=== PATIENT | female | born 1960 | race Caucasian/White ===

== ENCOUNTER → 2024-12-14 20:30 | Outpatient (REF) | payer BC, SELFPAY ==
--- OUTSIDE RECORDS SUMMARY | 2024-12-14 21:43 | XMS_ITS ---
Author Organization [facility] Address [address] [place] [address] Care Team Providers Care Wire Stitcher Operator Name Role Phone SINTIA HARMON, TANISHA Primary Care Provider Iveth Griffin Unavailable [phone] TANIA BURRELL Unavailable [phone] Allergies Allergen (clinical drug ingredient) Drug/Non Drug Allergy documented on EMR Reaction Allergy Type Onset Date Status oxycodone Oxycodone HCl Unknown Drug Allergy Act renee Substance with sulfonamide structure and antibacterial mechanism of action (substance) Sulfa Antibiotics Skin Rash Drug Allergy Active Results Component Value Reference Range Notes Urinalysis Reviewed date:07/17/2024 11:37:10 AM Interpretation: Performing Lab: Notes/Report: NITRITE POS PH 8.0 PROTEIN TR S.G 1.000 WBC POS GLUCOSE NEG KETONES NEG UROBILINOGEN NEG BILIRUBIN NEG BLOOD NEG Urinalysis, Complete-[id number] Reviewed date:07/19/2024 02:02:36 PM Interpretation: Performing Lab:Kanu Taylor, [address], Phone - [phone], Director - Tre Notes/Report: Specific Sims 1.005 1.005-1.030 pH 7.0 5.0-7.5 Urine-Color Yellow Yellow Appearance Clear Clear WBC Esterase Negative Negative Protein Negative Negative/Trace Glucose Negative Negative Ketones Negative Negative Occult Blood Negative Negative Bilirubin Negative Negative Urobilinogen,Semi-Qn 1.0 0.2-1.0 mg/dL Nitrite, Urine Positive Negative Microscopic Examination See below: Micr oscopic was indicated and was performed. WBC None seen 0 - 5 /hpf RBC None seen 0 - 2 /hpf Epithelial Cells (non renal) 0-10 0 - 10 /hpf Casts None seen None seen /lpf Bacteria None seen None seen/Few Urine Culture, Routine-[id number] Reviewed date:07/20/2024 08:57:40 AM Interpretation: Performing Lab:[facility], [address], [place], Phone - [phone], Director - Tre Notes/Report: Urine Culture, Routine Final report Result 1 No growth PDF Report Reviewed date:07/19/2024 02:10:24 PM Interpretation: Performing Lab:[facility], [address], [place], Phone - [phone], Director - Tre Notes/Report: REASON FOR VISIT UTI URGENCY AND FULLNESS Medications Medication SIG (Take, Route, Frequency, Duration) Notes Start Date End Date Status Adrenal Complex Acti ve Estradiol 0.5 MG 1 tablet Orally Once a day for 90 days 06/21/2024 Active Macrobid 100 MG 1 capsule with food Orally every 12 hrs for 5 days 07/17/2024 Active Prometrium 100 MG 1 capsule at bedtime Orally Once a day for 90 days 06/21/2024 Active Estradiol 0.1 MG/GM 1 GRAM Vaginal Two t imes a Week for 90 days 06/21/2024 Active Vitamin D3 1000 IU ORAL daily for [place]3 [facility] [place]2012 Active Vitamin B Complex Orally Ac tive Prometrium 100 MG 1 capsule at bedtime Orally Once a day for 90 days 06/16/2023 Active Estradiol Vaginal Cream 0.01% 1 Gram to the affected area Vaginal/Vulva Twice a week for 90 Days 06/16/2023 Active Estradiol 0.5 MG 1 tablet Orally Once a day for 90 days 06/16/2023 Active Estradiol 0.5 mg TAKE 1 TABLET DAILY Active Prometrium 100 MG 1 capsule at bedtime Orally Once a day for 90 days 06/15/2022 Active Estradiol Vaginal Cream 0.01% 1 Gram Vaginally Twice a Week for 90 Days 10/26/2022 Active Estradiol 0.1 MG/GM _insert 1 GRAM VAGIN ALLY TWICE A WEEK Active Estradiol 0.5 MG 1 tablet Orally Once a day for 90 days 06/15/2022 Active Progesterone 100 mg TAKE 1 CAPSULE DAILY AT BEDTIME Active Sertraline HCl 100 MG 1 tablet Orally On ce a day for 30 day(s) Active Magnesium Active Iodine 2 % as directed Externally Active Atenolol - as directed Active Social History Tobacco Use: Social History Observation Description Date Details (start date - stop date) Never Smoker NA - NA Tobacco Use/Smoking Question Answer Notes Are you a nonsmoker Alcohol Screen (Audit-C) Question Answer Notes Did you have a drink containing alcohol in the p ast year? No Points 0 Interpretation Negative Vital Signs Temperature 97.8 degrees Fahrenheit 07/17/20 24 Blood pressure systolic 122 mm Hg 07/17/20 24 Blood pressure diastolic 82 mm Hg 024 Height 66 in 07/17/2024 Weight 152 lbs 07/17/2024 BMI 24.53 kg/m2 07/17/2024 Encounters Encounter Location Date Provider Diagnosis [facility] [address] [place] [address] 07/17/2024 TANIA BURRELL Feeling of incomplet e bladder emptying R39.14 ; Dysuria R30.0 and Frequency of micturition R35.0 Assessments Encounter Date Diagnosis (ICD Code) Assessment Notes Treatment Notes Treatment Clinical Notes Section Notes 07/17/2024 Feeling of incomplete bladder emptying (ICD-10 - R39.14) 07/17/2024 Dysuria (ICD-10 - R30.0) plenty of fluids orally , AZO as needed , Tylenol 3-4 times a day as needed , Call if not better 07/17/2024 Frequency of micturition (ICD-10 - R35.0) Plan Of Treatment Medication Medication Name Sig Start Date Stop Date Notes Macrobid 100 MG 1 capsule with food Orally every 12 hrs for 5 days 07/17/2024 Treatment Notes Assessment Notes Dysuria plenty of fluids ora lly , AZO as needed , Tylenol 3-4 times a day as needed , Call if not better Next Appt Details Follow Up: prn, Reason: Provider Name:Iveth fink, 06/25/2025 10:20:00 AM, [address], [address], [place], [address], Progress Notes * ZAINABABEL JAMESB:1960 (64 yo F)Acc No.[id number]:07/17/2024 PROGRESS NOTES Patient:?CHERISE FOOTEA Provider:?TANIA BURRELL MD :1960???Age:64 Y???Sex:Female D ate:07/17/2024 Address:[address] [place] [address] Pcp:TANISHA PATRICIO MD Subjective: * Chief Complaints: * ???UTI URGENCY AND FULLNESS * HPI: ???DITCH CLEANER (Problems):?Tania is a [address] Orellana's here today for an urgent visit. ?64 year old female presents with c/o Urinary Tract Infection (symptoms of):?Describes problems as:?frequency, urgency pelvic pressure ?Location of problem:?suprapubic ?Date of onset:?less than one week ?Onset and progression of problem:?has been constant, has not changed since onset, has happened in the past ?Associated signs and symptoms:?None ? Denies new sexual partners, denies vaginal discharges. * ROS:?General/Constitutional:?Denies?Chills.?Denies?Fever.?Women Only:?Patient denies?new sexual partners.?Denies?Painful intercourse.?Denies?Vaginal discharge/itching.?Genitourinary:?Admits?Abdominal pain/swelling.?Denies?Blood in urine.?Admits?Difficulty urinating.?Admits?Frequent urination.?Denies?Pain in lower back.?Denies?Painful urination.? * Medical History:? * Stone Lathe Operator History:?/ Para?3/3.?Sexual activity?currently sexually active.?Last Pap Smear:?06/16/23 NIL, NEG HPV, 06/11/20 NIL, NEG HPV, 01/17/17 NIL, neg HR HPV.?Mammogram:?05/04/23 < 50% density, 05/03/22 < 50% density, 04/01/21 < 50% density, 12/11/19 < 50% density, , 12/07/18 < 50% density, 12/01/17 3D < 50% density, 11/15/16 3D< 50% density, 11/12/15 3D < 50% density, 11/11/14.?LMP and menses?N/A SINCE IUD REMOVED.?Colonoscopy?2012.? * OB History:?Total pregnancies?3.?Total living children?3.?(s)?3.? * Surgical History:? x 3 Taylor Teeth Extraction * Hospitalization/Major Diagno stic Procedure:?3 Deliveries ER for Anxiety 02/2016 * Family History:?Mother: dece ased, Breast Cancer age 31.?Father: , CHF, asbestiosis.?Paternal uncle: alive, 1. esophageal cancer age 732. esophageal ca age 74.?Paternal aunt: Breast Cancer @ age 34.?Maternal aunt: Breast Cancer @ Age 38 ()her daughter had breast ca x 3, age 28, 36 and 48 ().? Brother's daughter has ovarian ca, dx'ed age 31. She tested neg for 28 genetic mutations. 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 Pt tested BRCA1/2 neg 12/28/13, accession #[id number]. Results in [facility] EMR - update panel ordered 12/12/19 Brother Daughter + BRCA and Triple Negative - Double Mastectomy at 43. * Social History:?Tobacco Use:?Tobacco Use/Smoking?Are you a?nonsmoker ???Sexual History:?Sexual History?Had sex in the past 12 months (vaginal, oral, or anal)?: Yes.?Details of Sexual History?Are you sexually active??Yes ???Drugs/Alcohol:?Drugs?Have you used drugs other than those for medical reasons in the past 12 months??No ?Alcohol Screen (Audit-C)?Did you have a drink containing alcohol in the past year??No ?Points?0 ?Interpretation?Negative ???Miscellaneous:?Children: yes, 3. ?Domestic violence: no. ?Exercise: no. ?Home smoke detector use: yes. ?Living with: spouse. ?Marital status: . ?Natural support system: yes. ?Occupation: Homemaker. ?Sexual abuse: no. ?Sexually active: yes, monogamous relationship. ?Verbal abuse: no. * Medications:?TakingAtenolol - Powder as directed Iodine 2 % Tincture as directed Externally Sertraline HCl 100 MG Tablet 1 tablet Orally Once a day Magnesium Progesterone 100 mg Capsule TAKE 1 CAPSULE DAILY AT BEDTIME Estradiol 0.5 mg Tablet TAKE 1 TABLET DAILY Estradiol 0.1 MG/GM Cream _insert 1 GRAM VAGINALLY TWICE A WEEK Estradiol 0.5 MG Tablet 1 tablet Orally Once a day Prometrium 100 MG Capsule 1 capsule at bedtime Orally Once a day Estradiol Vaginal Cream 0.01% Cream 1 Gram Vaginally Twice a Week Estradiol 0.5 MG Tablet 1 tablet Orally Once a day Prometrium 100 MG Capsule 1 capsule at bedtime Orally Once a day Estradiol Vaginal Cream 0.01% Cream 1 Gram to the affected area Vaginal/Vulva Twice a week Vitamin D3 1000 IU 30 ORAL daily , Notes to Pharmacist: Phu-MJVitamin B Complex Tablet Orally Adrenal Complex Estradiol 0.5 MG Tablet 1 tablet Orally Once a day Prometrium 100 MG Capsule 1 capsule at bedtime Orally Once a day Estradiol 0.1 MG/GM Cream 1 GRAM Vaginal Two times a Week Medication List reviewed and reconciled with the patientTaking Atenolol - Powder as directed Taking Iodine 2 % Tincture as directed Externally Taking Sertraline HCl 100 MG Tablet 1 tablet Orally Once a day Taking Magnesium Taking Progesterone 100 mg Capsule TAKE 1 CAPSULE DAILY AT BEDTIME Taking Estradiol 0.5 mg Tablet TAKE 1 TABLET DAILY Taking Estradiol 0.1 MG/GM Cream _insert 1 GRAM VAGINALLY TWICE A WEEK Taking Estradiol 0.5 MG Tablet 1 tablet Orally Once a day Taking Prometrium 100 MG Capsule 1 capsule at bedtime Orally Once a day Taking Estradiol Vaginal Cream 0.01% Cream 1 Gram Vaginally Twice a Week Taking Estradiol 0.5 MG Tablet 1 tablet Orally Once a day Taking Prometrium 100 MG Capsule 1 capsule at bedtime Orally Once a day Taking Estradiol Vaginal Cream 0.01% Cream 1 Gram to the affected area Vaginal/Vulva Twice a week Taking Vitamin D3 1000 IU 30 ORAL daily , Notes to Pharmacist: PhuCrispinMJAndresfrankfort Vitamin B Complex Tablet Orally Taking Adrenal Complex Taking Estradiol 0.5 MG Tablet 1 tablet Orally Once a day Taking Prometrium 100 MG Capsule 1 capsule at bedtime Orally Once a day Taking Estradiol 0.1 MG/GM Cream 1 GRAM Vaginal Two times a Week Medication List reviewed and reconciled with the patient * Allergies:?Oxycodone HCl: Al lergySulfa Antibiotics: Skin Rash - Allergyno[Allergies Verified] Objective: * Vitals:?Ht: 66 in, Wt:152lbs , BMI:24.53Index, BP:122/82mm Hg, Temp:97.8F. * Examination: ???General Examination: ?GENERAL APPEARANCE:? pleasant, well nourished, in no acute distress, vp data present in room.?ABDOMEN:?soft, nontender, nondistended, bowel sounds present, no masses palpable, no hepatosplenomegaly.?BACK:?normal, no costovertebral angle tenderness.?Genitourinary - Female: ?EXTERNAL GENITALS:? normal.?URETHRAL MEATUS:? normal.?VAGINA:? healthy pink mucosa without any lesions or abnormal discharge.?CERVIX:? normal, no cervical movement tenderness.?UTERUS:? non tender.?OVARIES:? normal size, nontender.? Assessment: * Assessment: 1.?Feeling of incomplete bhavya dder emptying - R39.14???2.?Dysuria - R30.0 (Primary)???3.?Frequency of micturition - R35.0??? Plan: * Treatment: ? Value Reference Range ?Specific Sims 1.005 1.005- 1.030 - * ?pH 7.0 5.0-7.5 - * ?Urine-Color Yellow Yellow - * ?Appearance Clear Clear - * ?WBC Esterase Negative Negative - * ?Protein Negative Negative/Trace - * ?Glucose Negative Negative - * ?Ketones Negative Negative - * ?Occult Blood Negative Negative - * ?Bilirubin Negative Negative - * ?Urobilinogen,Semi-Qn 1.0 0. 2-1.0 - mg/dL * ?Nitrite, Urine Positive A Negative - * ?Microscopic Examination See below: - * ?WBC None seen 0 - 5 - /hpf * ?RBC None seen 0 - 2 - /hpf * ?Epithelial Cells (non renal) 0-10 0 - 10 - /hpf * ?Casts None seen None seen - /lp f * ?Bacteria None seen None seen/Few - * This lab was reviewed by CHERISE BURRELL on 07/19/2024 at 14:02 PM EDT ?LAB: Urine Culture, Routine-[id number] Notes: plenty of fluids orally , AZO as needed , Tylenol 3-4 times a day as needed , Call if not better??2.?Feeling of incomplete bladder emptying?LAB: Urinalysis (Collection Date & Time - 07/17/2024)* ? Value Reference Range ?NITRITE POS * ?PH 8.0 * ?PROTEIN TR * ?S.G 1.000 * ?WBC POS * ?GLUCOSE NEG * ?KETONES NEG * ?UROBILINOGEN NEG * ?BILIRUBIN NEG * ?BLOOD NEG 3.?Frequency of micturition? Start Macrobid Capsule, 100 MG, 1 capsule with food, Orally, every 12 hrs, 5 days, 10 Capsule, Refills 0.?? * Procedure Codes:? * Follow Up:?prn * Images: Billing Information: * Visit Code:? 35091 Office Visit, Est Pt., Level 3. * Procedure Codes:? * Sign off status: Completed true * Provider:?TANIA BURRELL MD Date:?2023 Generated for Meg grant/Natalia/eTransmitting on:?12/14/2024 09:43 PM EST History and Physical Notes * HPI (History of Present Illness) Category Sub-Category Detail Notes Category Not es DITCH CLEANER (Problems) Urinary Tract Infection (symptoms of): Describes problems as:: frequency, urgency pelvic pressure Denies new sexual partners, denies vaginal discharges. Location of problem:: suprapubic Date of onset:: less than one week Onset and progression of pro blem:: has been constant, has not changed since onset, has happened in the past Associated signs and symptoms:: None Examination Category Sub-Category Detail Notes Category Not es Genitourinary - Female EXTERNAL GENITALS: normal VAGINA: healthy pink mucosa without any lesions or abnormal discharge CERVIX: normal, no cervical movement tenderness UTERUS: non tender OVARIES: normal size, nontend er URETHRAL MEATUS: normal General Examination GENERAL APPEARANCE: pleasant , well nourished, in no acute distress, vp data present in room ABDOMEN: soft, nontender, non distended, bowel sounds present, no masses palpable, no hepatosplenomegaly BACK: normal, no costovert ebral angle tenderness
--- OUTSIDE RECORDS SUMMARY | 2024-12-14 21:43 | XMS_ITS | Encounter Summary ---
Author Organization [employer] Address [address] [address] Care Team Providers Care Book Store Associate Name Role Phone Ira Lee MD Primary Care Provider [phone] Reason for Visit * Reason Onset Date Comments Appointment Request 04/03/2024 Encounter Details Date Type Department Care Team (Late st Contact Info) Description 04/03/2024 Telephone [facility] [address] [place] [address] Ira Lee MD [address] [place] [address] Appointment Request Social History Tobacco Use Types Packs/Day Years Used Date Smoking Tobacco: Never Smokeless Tobacco: Never Alcohol Use Standard Drinks/Week Comments Never 0 (1 standard drink = 0.6 oz pur e alcohol) Depression Answer Date Recorded Patient Health Questionnaire-9 Score 1 10/26/2022 Depression Answer Date Recorded Patient Health Questionnaire-2 Score 0 10/26/2022 Comments Unknown Sex and Gender Information Value Date Recorded Sex Assigned at Female 08/16/2022 10:40 AM EDT Legal Sex Female 10:40 AM EDT Gender Identity Female 08/16/2022 10:40 AM EDT Sexual Orientation Straight 10/27/2022 12 :56 PM EST documented as of this encounter Miscellaneous Notes * Telephone Encounter - Stanton Vaughan - 04/03/2024 9:46 AM EDT Tc from patient calling to schedule a appt to get stiches removed from the thumb for 04/09 documented in this encounter Plan of Treatment Upcoming Encounters Date Type Department Care Team (Late st Contact Info) Description 02/11/2025 10:00 AM EDT Office Visit [facility] [address] [place] [address] Ira Lee MD [address] [place] [address] documented as of this encounter Visit Diagnoses Not on filedocumented in this encounter Additional Health Concerns Assessment Noted Time PHQ-9 Depression Total Score: 1 10/26/19 23 2:05 PM EST documented as of this encounter Care Teams Book Store Associate Relationship Specialty Start Date End Date Ira Lee MD [address] [place] [address] PCP - General Internal Medicine 10/17/18 documented as of this encounter
--- OUTSIDE RECORDS SUMMARY | 2024-12-14 21:43 | XMS_ITS | Clinical Summary ---
Author Organization [facility] Address [address] [place] [address] Care Team Providers Care Quality Specialist Name Role Phone Jass Mariano DO Primary Care Provider [phone] Family History Relation Name Status Comments Brother 1 Alive Brother 2 Alive Brother 3 Alive Father Alive Mother Social History Tobacco Use Types Packs/Day Years Used Date Smoking Tobacco: Never Alcohol Use Standard Drinks/Week Comments No 0 (1 standard drink = 0.6 oz pur e alcohol) Comments Unknown Sex and Gender Information Value Date Recorded Sex Assigned at Not on file Legal Sex Female 7:14 AM EST Gender Identity Not on file Sexual Orientation Not on file Obstetrics History Plan of Treatment Health Maintenance Due Date Last Done Comments Breast Cancer Screening 1960 Cervical Cancer Screening: P ap Smear 1983 Pneumococcal Vaccine: 50+ Ye ars (1 of 1 - PCV) 01/05/2012 Zoster Vaccines (1 of 2) 01/05/2012 Colorectal Cancer Screening: Colonoscopy 09/19/2022 Depression Screening 09/19/2022 HIV Screening 09/19/2022 Hepatitis C Screening 09/19/2022 Social Influencers of Health Screening 09/19/2022 COVID-19 Vaccine (1 - 2023-2 5 season) 2024 Influenza Vaccine (#1) 2024 DTaP,Tdap,and Td Vaccines (2 - Td or Tdap) 03/31/2034 03/31/2024 RSV Immunization Patients 60 + Years Old (1 - 1-dose 75+ series) 2037 HIB Vaccines Aged Out No longer eligi ble based on patient's age to complete this topic HPV Vaccines Aged Out No longer eligi ble based on patient's age to complete this topic Hepatitis A Vaccines Aged Out No long er eligible based on patient's age to complete this topic Hepatitis B Vaccines Aged Out No long er eligible based on patient's age to complete this topic IPV Vaccines Aged Out No longer eligi ble based on patient's age to complete this topic MMR Vaccines Aged Out No longer eligi ble based on patient's age to complete this topic Meningococcal ACWY Vaccine Aged Out N o longer eligible based on patient's age to complete this topic Meningococcal B Vacine Aged Out No lo nger eligible based on patient's age to complete this topic Pneumococcal Vaccine: Pediat rics (0 to 5 Years) and At-Risk Patients (6 to 64 Years) Aged Out No longer eligi ble based on patient's age to complete this topic RSV Immunization Patients Un raquel 20 months Aged Out No longer eligible b ased on patient's age to complete this topic Varicella Vaccines Aged Out No longer eligible based on patient's age to complete this topic Care Teams Quality Specialist Relationship Specialty Start Date End Date Jass Mariano DO [address] [place] [phone] PCP - General Internal Medicine 05/25/18
--- OUTSIDE RECORDS SUMMARY | 2024-12-14 21:43 | XMS_ITS | Encounter Summary ---
Author Organization [employer] [facility] Address [address] [place] [address] Care Team Providers Care Veterinary Epidemiologist Name Role Phone Ira Lee MD Primary Care Provider [phone] Encounter Details Date Type Department Care Team (Late Contact Info) Description 04/02/2024 Orders Only [facility] [address] [place] [address] ProviderYadi MD Social History Tobacco Use Types Packs/Day Years [...] PM EST documented as of this encounter Plan of Treatment Upcoming Encounters Date Type Department Care Team (Late Contact Info) Description 02/11/2025 10:00 AM EDT Office Visit [facility] [address] [place] [address] Ira Lee MD [address] [place] [address] documented as of this encounter Procedures Procedure Name Priority Date/Time Associated Diagnosis Comments XR FINGER THUMB 2+ VIEWS RIGHT Routine 03/31/2024 10:05 AM EDT documented in this encounter Results * XR finger - thumb right min 2V (03/31/2024 10:05 AM EDT) Anatomical Region Laterality Modality Upper Extremities, Fingers Right [employer] us Historical Provider MD SAMUEL XR PROCEDURES Final R esult documented in this encounter Visit Diagnoses Not on filedocumented in this encounter Additional Health Concerns Assessment Noted Time PHQ-9 Depression Total Score: 1 10/26/19 23 2:05 PM EST documented as of this encounter Care Teams Veterinary Epidemiologist Relationship Specialty Start Date End Date Ira Lee MD [address] [place] [phone] PCP - General Internal Medicine 10/17/18 documented as of this encounter
--- OUTSIDE RECORDS SUMMARY | 2024-12-14 21:43 | XMS_ITS | Clinical Summary ---
Author Organization [facility] Address [address] [place] [address] Care Team Providers Care Home Service Technician Name Role Phone GarcíaParadisedereje GALINDO Primary Care Provider [phone] Allergies Active Allergy Reactions Criticality Noted Date Comments Sulfa Antibiotics 06/07/2018 Medications Medication Sig Dispensed Refills Start Date End Date Status predniSONE (DELTASONE) tablet 20 mg 0 04/10/2018 Active escitalopram (LEXAPRO) tablet 10 mg 0 05/08/2018 Active Active Problems Problem Noted Date Diagnosed Date Incomplete tear of right rotator cuff 06/20/2018 Chronic right shoulder pain 06/07/2018 Social History Tobacco Use Types Packs/Day Years Used Date Smoking Tobacco: Never Smokeless Tobacco: Never Alcohol Use Standard Drinks/Week Comments No 0 (1 standard drink = 0.6 oz pur e alcohol) Sex and Gender Information Value Date Recorded Sex Assigned at Not on file Gender Identity Not on file Sexual Orientation Not on file Plan of Treatment Health Maintenance Due Date Last Done Comments Hepatitis C Screening 1960 COVID-19 Vaccine (#1) 1962 Depression Screening 1974 Preventative Health Evaluation 01/05/1980 DTap / Tdap / Td (1 - Tdap) 1981 Cervical Cancer Screening (P ap Smear) 1983 Colon Cancer Screening (Colonoscopy) 2007 Breast Cancer Screening (Mammogram) 01/05/2012 Shingrix-Zoster Vaccine (1 of 2) 01/05/2012 Influenza Vaccine (#1) 2024 RSV Adult > 60+ Yrs or Pregn ant (1 - 1-dose 75+ series) 2037 Hepatitis B Vaccines Aged Out No long er eligible based on patient's age to complete this topic Pneumococcal Vaccine Aged Out No long er eligible based on patient's age to complete this topic RSV Ped < 20 months Aged Out No longe r eligible based on patient's age to complete this topic Care Teams Home Service Technician Relationship Specialty Start Date End Date Jass Mariano DO [address] [place] [phone] PCP - General Internal Medicine 05/25/18
--- OUTSIDE RECORDS SUMMARY | 2024-12-14 21:43 | XMS_ITS | Encounter Summary ---
Author Organization [employer] Address [address] [place] [address] Care Team Providers Care Packing Line Worker Name Role Phone Ira Lee MD Primary Care Provider [phone] Encounter Details Date Type Department Care Team (Late Contact Info) Description 09/26/[address] [facility] [address] [place] [address] [place], [place] Social History Tobacco Use Types Packs/Day Years [...] Description 02/11/2025 10:00 AM EDT Office Visit [facility] [address] [place] [address] Ira Lee MD [address] [place] [address] documented as of this encounter Visit Diagnoses Not on filedocumented in this encounter Additional Health Concerns Assessment Noted Time PHQ-9 Depression Total Score: 1 10/26/19 23 2:05 PM EST documented as of this encounter Care Teams Packing Line Worker Relationship Specialty Start Date End Date Ira Lee MD [address] [place] [address] PCP - General Internal Medicine 10/17/18 documented as of this encounter
--- OUTSIDE RECORDS SUMMARY | 2024-12-14 21:43 | XMS_ITS | Clinical Summary ---
Author Organization [email or web address] Address [address] [place] [address] 7 [place] [address] Care Team Providers Care Supervisor Communications And Signals Name Role Phone Ira Lee MD Primary Care Provider Allergies Active Allergy Reactions Criticality Noted Date Comments Oxycodone Unknown 06/15/2022 Sulfa Antibiotics Rash Low 06/07/2018 Medications estradiol (Estrace) 0.1 MG/GM vaginal cream 2 Active estradiol (Estrace) 0.5 MG tablet 2 Active progesterone 100 MG capsule 1 capsule at bedtime. 2 Active sertraline (Zoloft) 100 MG tablet 3 Active loratadine (Claritin) 10 MG tabletIndications :Dermatitis Take 1 tablet (10 mg) by mouth in the morning. 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 Incomplete tear of right rotator cuff 06/20/2018 Chronic right shoulder pain 06/07/2018 Encounters Date Type Department Care Team Description 11/13/2024 11:15 AM EST Office Visit [facility] [address] [place] [address] Ira Lee MD Snoring (Primary Dx) 11/13/2024 Travel 11/12/2024 Travel 11/08/2024 Telephone [facility] [address] [place] [address] Ira Lee MD Nurse Triage 09/17/2024 Telephone [facility] [address] [place] [address] Ira Lee MD 09/17/2024 Orders Only [facility] [address] [place] [address] Ira Lee MD Nausea (Primary Dx); Dizziness from Last 3 Months Immunizations Name Administration Dates Next Due Influenza Injectable Quadriv alant Preservative Free IIV4 MDCK 07/05/2022,08/01/2018 Influenza injectable quadriv alent preservative free 07/23/2021,07/02/2020,07/16/2019,2015 Influenza, IIV3, injectable 08/06/2013 Moderna Covid-19 Vaccine 6+ Bivalent 07/05/2022 Tdap 11/11/2021 Social History Tobacco Use Types Packs/Day Years Used Date Smoking Tobacco: Never Smokeless Tobacco: Never Tobacco Cessation:Counseling Given: Not Answered Alcohol Use Standard Drinks/Week Comments Never 0 (1 standard drink = 0.6 oz pur e alcohol) Depression Answer Date Recorded Patient Health Questionnaire-9 Score 6 11/13/2024 Patient Health Questionnaire-9 Score 6 11/13/2024 Last PHQ-9: Questionnaire Data Not on file 0 11/13/2024 Housing Stability Answer Date Recorded What is your housing situation today? I have marilu perez 11/13/[address] you li ve. Do you have problems with any of the following? None of the above 11/13/2024 Food Insecurity Answer Date Recorded Within the past 12 months, y ou worried that your food would run out before you got money to buy more: Never True 11/13/2024 Within the past 12 months,th e food you bought just didn't last and you didn't have enough money to get more: Never True Transportation Answer Date Recorded In the past 12 months, has l ack of transportation kept you from medical appts, meetings, work or from getting things needed for daily living? No 11/13/2024 Utilities Answer Date Recorded In the past 12 months, has t he electric, gas, oil or water company threatened to shut off services in your home? No 11/13/2024 Depression Answer Date Recorded Patient Health Questionnaire-2 Score 0 11/13/2024 Internet Access Answer Date Recorded Internet Access Q1 Yes 11/13/2024 Internet Access Q2 Not on file 11/13/2024 Comments Unknown Sex and Gender Information Value Date Recorded Sex Assigned at Female 08/16/2022 10:40 AM EDT Legal Sex Female 10:40 AM EDT Gender Identity Female 08/16/2022 10:40 AM EDT Sexual Orientation Straight 10/27/2022 12 :56 PM EST Last Filed Vital Signs Vital Sign Reading Time Taken Comments Blood Pressure 131/78 11/13/2024 11:16 AM EST Pulse 71 11/13/2024 11:16 AM EST Temperature 36.7 ??C (98 ??F) 11/13/2024 11:16 AM EST Respiratory Rate 20 11/13/2024 11:16 AM EST Oxygen Saturation 95% 11/13/2024 11:16 AM EST Inhaled Oxygen Concentration - - Weight 72.6 kg (160 lb) 11/13/2024 11:16 AM EST Height 166.4 cm (5' 5.5 ) 11/13/2024 11:16 AM ES T Body Mass Index 26.22 11/13/2024 11:16 AM EST Plan of Treatment Upcoming Encounters Date Type Department Care Team (Late st Contact Info) Description 02/11/2025 10:00 AM EDT Office Visit [facility] [address] [place], [place] [phone] Ira Lee MD [address] [place], [place] [phone] Health Maintenance Due Date Last Done Comments CT Colonography 1962 Colonoscopy 1962 FIT 1962 FOBT 1962 HIV Screening 1962 Sigmoidoscopy 1962 Hepatitis C Screening 01/05/1980 Hepatitis A Vaccines (1 of 2 - Risk 2-dose series) 1981 Pap Smear 1983 Cervical Cancer Screening 01/05/1992 HPV/Cotest 01/05/1992 Pneumococcal Vaccine: 50+ Years (1 of 1 - PCV) 01/05/2012 Zoster Vaccines (1 of 2) 01/05/2012 Hepatitis B Vaccines (1 of 3 - Risk 3-dose series) 2022 RSV Patients and Patients Aged 60 years or older (1 - Risk 60-74 years 1-dose series) 2022 Alcohol/Substance Use Screening 11/13/2025 11/13/2024 Depression Screening 11/13/2025 11/13/2024, 11/13/19 25 SDOH Screening 11/13/2025 11/13/2024 Tobacco Screening 11/13/2025 11/13/2024 Mammogram 06/12/2026 06/12/2024, 0804/2024, 05/04/2023, Additional history exists Colorectal Cancer Screening 08/22/2026 FIT DNA/Cologuard 08/22/2026 08/22/2023 DTaP/Tdap/Td Vaccines (3 - Td or Tdap) 03/31/2034 03/31/2024, 11/11/2021 COVID-19 Vaccine Completed 08/31/2024, , 07/05/2022, Additional history exists Influenza Vaccine Completed 08/31/2024, , 07/05/2022, Additional history exists HIB Vaccines Aged Out No longer eligi ble based on patient's age to complete this topic HPV Vaccines Aged Out No longer eligi ble based on patient's age to complete this topic IPV Vaccines Aged Out No longer eligi ble based on patient's age to complete this topic Meningococcal Vaccine Aged Out No michelle tuan eligible based on patient's age to complete this topic RSV under 20 months Aged Out No longe r eligible based on patient's age to complete this topic Rotavirus Vaccines Aged Out No longer eligible based on patient's age to complete this topic Procedures Procedure Name Priority Date/Time Associated Diagnosis Comments BI MAMMOGRAM SCREENING BILATERAL Routine 06/12/2024 2:59 PM EDT LAB COLOGUARD?? COLON CANCER SCREEN Routine 08/22/2023 9:00 AM EST Screening for colon cancer from Last 3 Months or Most Recently Relevant to Health Maintenance Results * BI Mammogram Screening Bilateral (06/12/2024 2:59 PM EDT) Anatomical Region Laterality Modality Breast Bilateral Mammography us Historical Provider MD SAMUEL BI PROCEDURES Final R esult * Cologuard?? colon cancer screening (08/22/2023 9:00 AM EST) Cologuard Result Negative Negative 08/30/20 5:11 PM EST [facility] (CLIA #:[id number]) Comment: NEGATIVE TEST RESULT. A negative Cologuard result indicates a low likelihood that a colorectal cancer (CRC) or advanced adenoma (adenomatous polyps with more advanced pre-malignant features) ??is present. The chance that a person with a negative Cologuard test has a colorectal cancer is less than 1 in 1500 (negative predictive value >99.9%) or has an ??advanced adenoma is less than ??5.3% (negative predictive value 94.7%). These data are based on a prospective cross-sectional study of 10,000 individuals at average risk for colorectal cancer who were screened with both Cologuard and colonoscopy. (Inderjit Snow al, N Engl J Med 2014;370(14):1286- 1297) The normal value (reference range) for this assay is negative. COLOGUARD RE-SCREENING RECOMMENDATION: Periodic colorectal cancer screening is an important part of preventive healthcare for asymptomatic individuals at average risk for colorectal cancer. ??Following a negative Cologuard result, the [place] Cancer Society and U.S. Multi-Society Task Force screening guidelines recommend a Cologuard re-screening interval of 3 years. References: [place] Cancer Society Guideline for Colorectal Cancer Screening: https://www.cancer.org/cancer/hcwzx-lsjqjr-wrmxiq/dkdvbtjmk-fmduumrsq-ybfmnff/ac s-rec ommendations.html.; Fer DK, Ritesh CR, Beatris MiguelK, Colorectal Cancer Screening: Recommendations for Physicians and Patients from the U.S. Multi-Society Task Force on Colorectal Cancer Screening , Am J Gastroenterology 2017; 112:8812-3886. TEST DESCRIPTION: Composite algorithmic analysis of stool DNA-biomarkers with hemoglobin immunoassay. ?? Quantitative values of individual biomarkers are not reportable and are not associated with individual biomarker result reference ranges. Cologuard is intended for colorectal cancer screening of adults of either sex, 45 years or older, who are at average-risk for colorectal cancer (CRC). Cologuard has been approved for use by the U.S. FDA. The performance of Cologuard was established in a cross sectional study of average-risk adults aged 50-84. Cologuard performance in patients ages 45 to 49 years was estimated by sub-group analysis of near-age groups. Colonoscopies performed for a positive result may find as the most clinically significant lesion: colorectal cancer [4.0%], advanced adenoma (including sessile serrated polyps greater than or equal to 1cm diameter) [20%] or non- advanced adenoma [31%]; or no colorectal neoplasia [45%]. These estimates are derived from a prospective cross-sectional screening study of 10,000 individuals at average risk for colorectal cancer who were screened with both Cologuard and colonoscopy. (Inderjit Snow al, N Engl J Med 2014;370(14):1555-3379.) Cologuard may produce a false negative or false positive result (no colorectal cancer or precancerous polyp present at colonoscopy follow up). A negative Cologuard test result does not guarantee the absence of CRC or advanced adenoma (pre-cancer). The current Cologuard screening interval is every 3 years. ([place] Cancer Society and U.S. Multi-Society Task Force). Cologuard performance data in a 10,000 patient pivotal study using colonoscopy as the reference method can be accessed at the following location: www.[facility].Theatrics/results. Additional description of the Cologuard test process, warnings and precautions can be found at www.[employer].com. Stool specimen (specimen) 08/22/2023 9:00 AM EST 08/23/2023 8:52 PM EST Ira Lee MD LAB MOLECULAR DIAGNOSTICS O RDERAANTHONY Final Result [facility] (CLIA #:[id number]) [address] [place] [address], [place] [phone] from Last 3 Months or Most Recently Relevant to Health Maintenance Insurance HMO Care Teams Supervisor Communications And Signals Relationship Specialty Start Date End Date Ira Lee MD [address] [place] [id number] PCP - General Internal Medicine 10/17/18
--- OUTSIDE RECORDS SUMMARY | 2024-12-14 21:43 | XMS_ITS | Encounter Summary ---
Author Organization [employer] Address [address] [place] [address] Care Team Providers Care Magnetic Tape Composer Operator Name Role Phone Ira Lee MD Primary Care Provider [phone]- [phone] Encounter Details Date Type Department Care Team (Late Contact Info) Description 06/14/2024 [facility] Only [facility] [address] [place] [address] ProviderYadi MD Social History Tobacco Use Types [...] Description 02/11/2025 10:00 AM EDT Office Visit [facility] [address] [place], [place] [phone] Ira Lee MD [address] [place], [place] [phone] documented as of this encounter Procedures Procedure Name Priority Date/Time Associated Diagnosis Comments BI MAMMOGRAM SCREENING BILATERAL Routine 06/12/2024 2:59 PM EDT documented in this encounter Results * BI Mammogram Screening Bilateral (06/12/2024 2:59 PM EDT) Anatomical Region Laterality Modality Breast Bilateral Mammography us Historical Provider MD SAMUEL BI PROCEDURES Final R esult documented in this encounter Visit Diagnoses Not on filedocumented in this encounter Additional Health Concerns Assessment Noted Time PHQ-9 Depression Total Score: 1 10/26/19 23 2:05 PM EST documented as of this encounter Care Teams Magnetic Tape Composer Operator Relationship Specialty Start Date End Date Ira Lee MD [address] [place] [id number] PCP - General Internal Medicine 10/17/18 documented as of this encounter
--- OUTSIDE RECORDS SUMMARY | 2024-12-14 21:43 | XMS_ITS | Encounter Summary ---
Author Organization [employer] Address [address] [place] [address] Care Team Providers Care Snow Removal Supervisor Name Role Phone Ira Lee MD Primary Care Provider [phone]- [phone] Encounter Details Date Type Department Care Team ([facility] Contact Info) Description 09/17/2024 Orders Only [facility] [address] [place] [address] Ira Lee MD [address] [place] [address] Nausea (Primary Dx); Dizziness Social History Tobacco Use Types Packs/Day Years [...] Description 02/11/2025 10:00 AM EDT Office Visit [facility] [address] [place] [address] Ira Lee MD [address] [place] [address] documented as of this encounter Visit Diagnoses Diagnosis Nausea- Primary Nausea alone Dizziness Dizziness and giddiness documented in this encounter Additional Health Concerns Assessment Noted Time PHQ-9 Depression Total Score: 1 10/26/19 23 2:05 PM EST documented as of this encounter Care Teams Snow Removal Supervisor Relationship Specialty Start Date End Date Ira Lee MD [address] [place] [address] PCP - General Internal Medicine 10/17/18 documented as of this encounter
--- OUTSIDE RECORDS SUMMARY | 2024-12-14 21:43 | XMS_ITS | Encounter Summary ---
Author Organization [employer] Address [address] [place] [address] Care Team Providers Care Racehorse Trainer Name Role Phone Ira Lee MD Primary Care Provider [phone]- [phone] Encounter Details Date Type Department Care Team (Late Contact Info) Description 09/27/2023 Abstract [facility] [address] [place] [address] Arron [place], [place] Social History Tobacco Use Types Packs/Day [...] Description 02/11/2025 10:00 AM EDT Office Visit [facility] [address] [place] [address] Ira Lee MD [address] [place] [address] documented as of this encounter Visit Diagnoses Not on filedocumented in this encounter Additional Health Concerns Assessment Noted Time PHQ-9 Depression Total Score: 1 10/26/19 23 2:05 PM EST documented as of this encounter Care Teams Racehorse Trainer Relationship Specialty Start Date End Date Ira Lee MD [address] [place] [address] PCP - General Internal Medicine 10/17/18 documented as of this encounter
--- OUTSIDE RECORDS SUMMARY | 2024-12-14 21:43 | XMS_ITS | Encounter Summary ---
Author Organization [employer] Address [address] [place] [address] Care Team Providers Care Gathering Machine Feeder Name Role Phone Ira Lee MD Primary Care Provider [phone]- [phone] Encounter Details Date Type Department Care Team (Late Contact Info) Description 07/17/2024 Orders Only [facility] [address] [place] [address] Ira Lee MD [address] [place] [address] Social History Tobacco Use Types Packs/Day Years [...] Description 02/11/2025 10:00 AM EDT Office Visit [facility] [address] [place] [address] Ira Lee MD [address] [place] [address] documented as of this encounter Visit Diagnoses Not on filedocumented in this encounter Additional Health Concerns Assessment Noted Time PHQ-9 Depression Total Score: 1 10/26/19 23 2:05 PM EST documented as of this encounter Care Teams Gathering Machine Feeder Relationship Specialty Start Date End Date Ira Lee MD [address] [place] [address] PCP - General Internal Medicine 10/17/18 documented as of this encounter
--- OUTSIDE RECORDS SUMMARY | 2024-12-14 21:43 | XMS_ITS | Patient Health Record ---
Author Organization [facility] Address [address] [place] [address] Care Team Providers Care Multimedia Educational Specialist Name Role Phone SINTIA HARMON, TANISHA Primary Care Provider Iveth Griffin Unavailable [phone] TITUS BURRELL Unavailable [phone] Allergies Allergen (clinical drug ingredient) Drug/Non Drug Allergy documented on EMR Reaction Allergy Type Onset Date Status oxycodone Oxycodone HCl Unknown Drug Allergy Act renee Substance with sulfonamide structure and antibacterial mechanism of action (substance) Sulfa Antibiotics Skin Rash Drug Allergy Active Results Component Value Reference Range Notes Urinalysis Reviewed date:06/21/2024 01:22:19 PM Interpretation: Performing Lab: Notes/Report: PH 5.0 PROTEIN TR GLUCOSE NEG BLOOD MOD Urinalysis Reviewed date:07/17/2024 11:37:10 AM Interpretation: Performing Lab: Notes/Report: NITRITE POS PH 8.0 PROTEIN TR S.G 1.000 WBC POS GLUCOSE NEG KETONES NEG UROBILINOGEN NEG BILIRUBIN NEG BLOOD NEG Urinalysis, Complete-[id number] Reviewed date:07/19/2024 02:02:36 PM Interpretation: Performing Lab:[facility], [address] [place] [address], Phone - [phone], Director - Tre Notes/Report: Specific Andrews 1.005 1.005-1.030 pH 7.0 5.0-7.5 Urine-Color Yellow [...] Bacteria None seen None seen/Few Urine Culture, Routine-[id number] Reviewed date:07/20/2024 08:57:40 AM Interpretation: Performing Lab:[facility], [address] [place] [address], Phone - [phone], Director - Tre Notes/Report: Urine Culture, Routine Final report Result 1 No growth PDF Report Reviewed date:07/19/2024 02:10:24 PM Interpretation: Performing Lab:[facility], [address] [place] [address], Phone - [phone], Director - Tre Notes/Report: Urinalysis Reviewed date:07/23/2024 06:22:16 PM Interpretation: Performing Lab: Notes/Report: NITRITE NEG PH 6.0 PROTEIN NEG S.G 1.000 WBC NEG GLUCOSE NEG KETONES NEG UROBILINOGEN NEG BILIRUBIN NEG BLOOD TR Urine Culture, Routine-[id number] Reviewed date:07/26/2024 09:13:28 AM Interpretation: Performing Lab:[facility], [address], [address], [place], Phone - [phone], Director - [facility] Notes/Report: Urine Culture, Routine Final report Result 1 No growth PDF Report Reviewed date:07/24/2024 06:42:07 PM Interpretation: Performing Lab:[facility], [address], [address], [place], Phone - [phone], Director - [facility] Notes/Report: Reason For Referral No Information Medications Medication SIG (Take, Route, Frequency, Duration) Notes Start Date End Date Status Estradiol 0.5 mg TAKE 1 TABLET DAILY Active Estradiol 0.5 MG 1 tablet Orally Once a day for 90 days 06/21/2024 Active Progesterone 100 mg TAKE 1 CAPSULE DAILY AT BEDTIME Active Adrenal Complex Acti ve Magnesium Active Vitamin B Complex Orally Ac tive Sertraline HCl 100 MG 1 tablet Orally On ce a day for 30 day(s) Active Vitamin D3 1000 IU ORAL daily for -3 [facility] 11/06/2012 Active Iodine 2 % as directed Externally Active Estradiol Vaginal Cream 0.01% 1 Gram to the affected area Vaginal/Vulva Twice a week for 90 Days 06/16/2023 Active Estradiol 0.1 MG/GM 1 gram Vaginal night ly for 14 days Active Atenolol - as directed Active Prometrium 100 MG 1 capsule at bedtime Orally Once a day for 90 days 06/16/2023 Active Estradiol 0.5 MG 1 tablet Orally Once a day for 90 days 06/16/2023 Active Estradiol Vaginal Cream 0.01% 1 Gram Vaginally Twice a Week for 90 Days 10/26/2022 Active Prometrium 100 MG 1 capsule at bedtime Orally Once a day for 90 days 06/15/2022 Active Macrobid 100 MG 1 capsule with food Orally every 12 hrs for 5 days 07/17/2024 Active Estradiol 0.5 MG 1 tablet Orally Once a day for 90 days 06/15/2022 Active Estradiol 0.1 MG/GM 1 GRAM Vaginal Two t imes a Week for 90 days 06/21/2024 Active Prometrium 100 MG 1 capsule at bedtime Orally Once a day for 90 days 06/21/2024 Active Social History Tobacco Use: Social History Observation Description Date Details (start date - stop date) Never Smoker NA - NA Tobacco Use/Smoking Question Answer Notes Are you a nonsmoker Alcohol Screen (Audit-C) Question Answer Notes Did you have a drink containing alcohol in the p ast year? No Points 0 Interpretation Negative Problems Problem Type SNOMED Code ICD Code Onset Dates Problem Status W/U Status Risk Notes Problem Postmenopausal atrophic vaginitis (68274784) Postmenopausal atrophic vaginitis (N95.2) Active confirmed Problem Postmenopausal bleeding (07733453) Postmenopausal bleeding (N95.0) Active confirmed Problem Depressive disorder (09456293) Depressive disorder, not elsewhere classified (311) Active confirmed Major Problem Postmenopausal atrophic vaginitis (82484990) Postmenopausal atrophic vaginitis (627.3) Active confirmed Diag Problem Gynecological examination normal (676048696324016) Routine gynecological examination (V72.31) Active confirmed Major Problem Family history of malignant neoplasm of breast (268644504) Family history of malignant neoplasm of breast (V16.3) Active confirmed Major Problem Family history of malignant neoplasm of ovary (868094388) Family history of malignant neoplasm, ovary (V16.41) Active confirmed Major Problem Insertion of intrauterine contraceptive device (23821983) Insertion of intrauterine contraceptive device (V25.1) Active confirmed Major Problem Surveillance of intrauterine device contraception done (984851361859463) Surveillance of previously prescribed intrauterine contraceptive device (V25.42) Active confirmed Major Problem Screening for malignant neoplasm of colon (231684708) Special screening for malignant neoplasms, colon (V76.51) Active confirmed Major Vital Signs Temperature 97.8 degrees Fahrenheit 07/23/2024 Blood pressure diastolic 84 mm Hg 07/23/2024 Height 66 in 07/23/2024 Blood pressure systolic 118 mm Hg 07/23/2024 Weight 152 lbs 07/23/2024 BMI 24.53 kg/m2 07/23/2024 Encounters Encounter Location Date Provider Diagnosis Total [address] [address] 06/21/2024 Iveth Orellana Encounter for gynecological examination (general) (routine) without abnormal findings Z01.419 ; Encounter for screening mammogram for malignant neoplasm of breast Z12.31 ; Hormone replacement therapy Z79.890 ; Postmenopausal atrophic vaginitis N95.2 and Family history of malignant neoplasm of breast Z80.[address] [address] 07/17/2024 TITUS BURRELL Feeling of incomplet e bladder emptying R39.14 ; Dysuria R30.0 and Frequency of micturition R35.[address] [address] 07/23/2024 TITUS BURRELL Pelvic Pain R10.2 Assessments Encounter Date Diagnosis (ICD Code) Assessment Notes Treatment Notes Treatment Clinical Notes Section Notes 06/21/2024 Encounter for gynecological examination (general) (routine) without abnormal findings (ICD-10 - Z01.419) NO PAP TEST, DUE IN 2025. 07/17/2024 Feeling of incomplete bladder emptying (ICD-10 - R39.14) 07/23/2024 Pelvic Pain (ICD-10 - R10.2) No sign of vaginal infection. Likely not a UTI due to negative culture last week, but will send culture due to the presence of trace blood and continued symptoms. I considered vaginal atrophy, but patient is on vaginal estradiol twice weekly and oral hormones. Can trial vaginal estrogen nightly x 2 weeks to see if this improves her symptoms, and then may need to use vaginal estradiol thrice weekly rather than twice weekly. May ultimately need a referral to urology if symptoms do not resolve. 06/21/2024 Encounter for screening mammogram for malignant neoplasm of breast (ICD-10 - Z12.31) REGULAR MAMMOGRAMS AND SBE'S WERE RECOMMENDED. 07/17/2024 Dysuria (ICD-10 - R30.0) plenty of fluids orally , AZO as needed , Tylenol 3-4 times a day as needed , Call if not better 06/21/2024 Hormone replacement therapy (ICD-10 - Z79.890) DISCUSSED BENEFITS AND RISKS OF HRT. PAT UNDERSTANDS RISKS AND WANTS TO CONTINUE. 07/17/2024 Frequency of micturition (ICD-10 - R35.0) 06/21/2024 Postmenopausal atrophic vaginitis (ICD-10 - N95.2) CONTINUE ESTRADIOL CREAM. 06/21/2024 Family history of malignant neoplasm of breast (ICD-10 - Z80.3) DISCUSSED PSITIVE BRCA MUTATION IN HER BROTHER AND NIECE. PAT HERSELF IS BRCA NEGATIVE. INCREASED RISK OF BREAST AND UTERINE CA WERE DISCUSSED SPECIALLY WITH HRT BUT SHE WANTS TO CONTINUE HRT. Plan Of Treatment Pending Test Test Name Order Date MAMMOGRAM, SCREENING 12/23/2014 MAMMOGRAM, SCREENING 06/15/2022 MAMMOGRAM, SCREENING 06/16/2023 MAMMOGRAM, SCREENING 06/21/2024 Urinalysis 06/11/2020 Urinalysis 06/12/2021 MM Digital Mammo Screening 06/15/2022 MM Digital Mammo Screening 06/12/2021 MM Digital Mammo Screening 06/21/2024 MM Digital Mammo Screening 06/16/2023 Next Appt Details Provider Name:Iveth Lexy Fierrosarah danae, 06/25/2025 10:20:00 AM, [address], [address], [place], [address], Insurance Providers Payer Name Payer Address Payer Phone Subscriber Number Group Number Insured Name Patient Relationship to Insured Coverage Start Date Coverage End Date [employer] [place] [address] [place] [address] [id number] MNIOO FOOTE Spouse - patient is the spouse of the insured Medical (General) History Medical History History ICD Code Postmenopausal atrophic vaginitis N95.2 Major depressive disorder, single episod e, unspecified F32.9 Family history of malignant neoplasm of breast Z80.3 Family history of malignant neoplasm of ovary Z80.41 Menopausal and female climacteric states N95.1 Dyspareunia N94.1 Hormone replacement therapy (postmenopau rip) Z79.890 Atrophy of vulva N90.5 Postmenopausal bleeding N95.0 ADRENAL FATIGUE Surgical History Surgery Date(Month/Year) x 3 [facility] Teeth Extraction Hospitalization History Reason Date(Month/Year) ER for Anxiety 02/2016 3 Deliveries
--- OUTSIDE RECORDS SUMMARY | 2024-12-14 21:44 | XMS_ITS | Encounter Summary ---
Author Organization [employer] Address [address] [place] [address] Care Team Providers Care Stud Dairy Cattle Farmer Name Role Phone Ira Lee MD Primary Care Provider [phone] Encounter Details Date Type Department Care Team (Late Contact Info) Description 01/07/2023 Orders Only [facility] [address] [place] [address] Eliz Rodriguez RN [address] [place] [address] Social History Tobacco Use Types Packs/Day Years [...] [facility] [address] [place], [place] [phone] Ira Lee MD [address] [place], [place] [phone] documented as of this encounter Visit Diagnoses Not on filedocumented in this encounter Additional Health Concerns Assessment Noted Time PHQ-9 Depression Total Score: 1 10/26/19 23 2:05 PM EST documented as of this encounter Care Teams Stud Dairy Cattle Farmer Relationship Specialty Start Date End Date Ira Lee MD [address] [place] [address] PCP - General Internal Medicine 10/17/18 documented as of this encounter
--- OUTSIDE RECORDS SUMMARY | 2024-12-14 21:44 | XMS_ITS ---
Author Organization [facility] Address [address] [place] [address] Care Team Providers Care Nuclear Medicine Specialist Name Role Phone SINTIA HARMON, TANISHA Primary Care Provider Iveth Griffin Unavailable [phone] TANIA BURRELL Unavailable [phone] Allergies Allergen (clinical drug ingredient) Drug/Non Drug Allergy documented on EMR Reaction Allergy Type Onset Date Status oxycodone Oxycodone HCl Unknown Drug Allergy Act renee Substance with sulfonamide structure and antibacterial mechanism of action (substance) Sulfa Antibiotics Skin Rash Drug Allergy Active Results Component Value Reference Range Notes Urinalysis Reviewed date:07/23/2024 06:22:16 PM Interpretation: Performing Lab: Notes/Report: NITRITE NEG PH 6.0 PROTEIN NEG S.G 1.000 WBC NEG GLUCOSE NEG KETONES NEG UROBILINOGEN NEG BILIRUBIN NEG BLOOD TR Urine Culture, Routine-[id number] Reviewed date:07/26/2024 09:13:28 AM Interpretation: Performing Lab:[facility], [address] [employer], [place], Phone - [phone], Director - [facility] Notes/Report: Urine Culture, Routine Final report Result 1 No growth PDF Report Reviewed date:07/24/2024 06:42:07 PM Interpretation: Performing Lab:[facility], [place], Phone - [phone], Director - [facility] Notes/Report: REASON FOR VISIT PELVIC PAIN Medications Medication SIG (Take, Route, Frequency, Duration) Notes Start Date End Date Status Prometrium 100 MG 1 capsule at bedtime Orally Once a day for 90 days 06/16/2023 Active Estradiol 0.5 MG 1 tablet Orally Once a day for 90 days 06/16/2023 Active Estradiol Vaginal Cream 0.01% 1 Gram Vaginally Twice a Week for 90 Days 10/26/2022 Active Prometrium 100 MG 1 capsule at bedtime Orally Once a day for 90 days 06/15/2022 Active Estradiol 0.5 MG 1 tablet Orally Once a day for 90 days 06/15/2022 Active Estradiol 0.5 mg TAKE 1 TABLET DAILY Active Progesterone 100 mg TAKE 1 CAPSULE DAILY AT BEDTIME Active Magnesium Active Sertraline HCl 100 MG 1 tablet Orally On ce a day for 30 day(s) Active Iodine 2 % as directed Externally Active Estradiol 0.1 MG/GM 1 gram Vaginal night ly for 14 days Active Atenolol - as directed Active Macrobid 100 MG 1 capsule with food Orally every 12 hrs for 5 days 07/17/2024 Active Estradiol 0.1 MG/GM 1 GRAM Vaginal Two t imes a Week for 90 days 06/21/2024 Active Prometrium 100 MG 1 capsule at bedtime Orally Once a day for 90 days 06/21/2024 Active Estradiol 0.5 MG 1 tablet Orally Once a day for 90 days 06/21/2024 Active Adrenal Complex Acti ve Vitamin B Complex Orally Ac tive Vitamin D3 1000 IU ORAL daily for -3 [facility] 11/06/2012 Active Estradiol Vaginal Cream 0.01% 1 Gram to the affected area Vaginal/Vulva Twice a week for 90 Days 06/16/2023 Active Social History Tobacco Use: Social History Observation Description Date Details (start date - stop date) Never Smoker NA - NA Tobacco Use/Smoking Question Answer Notes Are you a nonsmoker Alcohol Screen (Audit-C) Question Answer Notes Did you have a drink containing alcohol in the p ast year? No Points 0 Interpretation Negative Vital Signs Temperature 97.8 degrees Fahrenheit 07/23/20 24 Blood pressure systolic 118 mm Hg 07/23/20 24 Blood pressure diastolic 84 mm Hg 024 Height 66 in 07/23/2024 Weight 152 lbs 07/23/2024 BMI 24.53 kg/m2 07/23/2024 Encounters Encounter Location Date Provider Diagnosis [address] [address] 07/23/2024 TANIA BURRELL Pelvic Pain R10.2 Assessments Encounter Date Diagnosis (ICD Code) Assessment Notes Treatment Notes Treatment Clinical Notes Section Notes 07/23/2024 Pelvic Pain (ICD-10 - R10.2) No [...] to urology if symptoms do not resolve. Plan Of Treatment Medication Medication Name Sig Start Date Stop Date Notes Estradiol 0.1 MG/GM 1 gram Vaginal nightly for 14 days Treatment Notes Assessment Notes Pelvic Pain No sign of vaginal i nfection. Likely not a UTI due to negative [...] to urology if symptoms do not resolve. Next Appt Details Follow Up: prn, Reason: Provider Name:Iveth fink, 06/25/2025 10:20:00 AM, [address], [place], [address], Procedure Notes * Category Sub-Category Detail Notes Wet Mount Clue cells None seen Hyphae No hyphae or buds Trichomonas None seen Progress Notes * CHERISE FOOTEADOB:1960 (64 yo F)Acc No.[id number]:07/23/2024 PROGRESS NOTES Patient:?TANIA FOOTE Provider:?TANIA BURRELL MD :1960???Age:64 Y???Sex:Female D ate:07/23/2024 Address:[address] [place], [place] [phone] Pcp:TANISHA PATRICIO MD Subjective: * Chief Complaints: * ???PELVIC PAIN * HPI: ???BELT GLASS SANDER (Problems):?Tania is a [address] Diaz, seen on 07/17/24 for a UTI, which was treated with Macrobid. She comes in today for another urgent visit in Dr Orellana's absence. ?64 year old female presents with c/o Pelvic Pain:?When did the pain start:?more than a week ?Location of pain:?not actually pain, just pressure, like a bladder spasm ?Does pain radiate:?No ?Severity of pain:?mild ?Quality of pain:?pressure to void, like her bladder is full and she's holding it it - it's not actually pain. She denies dysuria ?Associated signs or symptoms:?none ?Denies signs and symptoms:?abdominal distention, anorexia, chills, constipation, diarrhea, fever, nausea, vaginal bleeding, vomiting ?Aggravating factors:?none ?Remedies tried:?Uristat - it didn't help, antibiotics (macrobid) also didn't help (she stopped them when she got the negative culture report) ?Any relief from interventions:?no relief ?Significant past medical history:?prior pelvic surgery ? She uses oral estradiol and progesterone. She also uses vaginal estradiol cream twice weekly. * ROS:?General/Constitutional:?Patient denies?fever, weight gain, weight loss.?Gastrointestinal:?Patient denies?blood in stool, constipation, diarrhea, nausea, vomiting, decreased appetite.?Women Only:?Patient denies?painful menses, painful intercourse, new sexual partners, abnormal vaginal discharge, unprotected sex.?Genitourinary:?Patient denies?blood in the urine, painful urination, frequent urination, back pain.?Patient complaining of?urge of urination, with pressure.?Musculoskeletal:?Patient denies?trauma to hip(s).?Psychiatric:?Patient denies?feelings of anxiety, feelings of depression.? * Medical History:? * Security Operations Specialist History:?/ Para?3/3.?Sexual activity?currently sexually active.?Last Pap Smear:?06/16/23 [...] living children?3.?(s)?3.? * Surgical History:? x 3 [facility] Teeth Extraction * Hospitalization/Major Diagno stic Procedure:?3 [...] MSH2. Pt tested BRCA1/2 neg 12/28/13, accession #[id number]. Results in [facility] EMR - update panel ordered 12/12/19 Brother Daughter + BRCA and Triple Negative - Double Mastectomy at 43. * Social History:?Tobacco Use:?Tobacco Use/Smoking?Are you a?nonsmoker ???Drugs/Alcohol:?Drugs?Have you used drugs other than those [...] 1 GRAM Vaginal Two times a Week Macrobid 100 MG Capsule 1 capsule with food Orally every 12 hrs Medication List reviewed and reconciled with the [...] 30 ORAL daily , Notes to Pharmacist: [facility] Vitamin B Complex Tablet Orally Taking Adrenal Complex Taking Estradiol 0.5 MG Tablet 1 tablet Orally Once a day Taking Prometrium 100 MG Capsule 1 capsule at bedtime Orally Once a day Taking Estradiol 0.1 MG/GM Cream 1 GRAM Vaginal Two times a Week Taking Macrobid 100 MG Capsule 1 capsule with food Orally every 12 hrs Medication List reviewed and reconciled with the patient * Allergies:?Oxycodone HCl: Al lergySulfa Antibiotics: Skin Rash - Allergyno[Allergies Verified] Objective: * Vitals:?Ht: 66 in, Wt:152lbs , BMI:24.53Index, BP:118/84mm Hg, Temp:97.8F. * Examination: ???General Exam: ?CONSTITUTIONAL:?General Appearance:?ore puncher present in room, alert, in no acute distress, normal, well nourished?Genitourinary - Female: ?ABDOMEN:?soft, non-tender, no mass, no rebound, no guarding,no costovertebral angle tenderness.?EXTERNAL GENITALS:? normal.?VAGINA:? nontender anterior wall, nontender posterior wall, white thick medication present in vaginal vault.?BLADDER;? nontender.?ANUS/PERINEUM:? visually normal.?CERVIX:? no cervical movement tenderness.?UTERUS:? normal size, mobile, non tender.?OVARIES:? no masses felt in adnexa, nontender.?RECTAL EXAM:? no masses, normal tone, does not reproduce pain.?Psychiatry: ?AFFECT:? appropriate.?ATTITUDE:? cooperative.?SPEECH:? clear.? Assessment: * Assessment: 1.?Pelvic Pain - R10.2 (Prim omar)??? Plan: * Treatment: ? Value Reference Range ?NITRITE NEG * ?PH 6.0 * ?PROTEIN NEG * ?S.G 1.000 * ?WBC NEG * ?GLUCOSE NEG * ?KETONES NEG * ?UROBILINOGEN NEG * ?BILIRUBIN NEG * ?BLOOD TR Notes: No sign of vaginal infection. Likely not a UTI due to negative culture last week, but will send culture due to the presence of trace blood and continued symptoms. I considered vaginal atrophy,but patient is on vaginal estradiol twice weekly and oral hormones. Can trial vaginal estrogen nightly x 2 weeks to see if this improves her symptoms, and then may need to use vaginal estradiol thrice weekly rather than twice weekly. May ultimately need a referral to urology if symptoms do not resolve. ?? * Procedures:?[place]et [place]:?Clue cells?None seen.?Hyphae?No hyphae or buds.?Trichomonas?None seen.? * Procedure Codes:? * Follow Up:?prn * Images: Billing Information: * Visit Code:? 44243 Office Visit, Est Pt., Level 4. * Procedure Codes:? * Sign off status: Completed true * Provider:?TANIA BURRELL MD Date:?2023 Generated for Frequent Browseri ng/Natalia/eTransmitting on:?12/14/2024 09:43 PM EST History and Physical Notes * HPI (History of Present Illness) Category Sub-Category Detail Notes Category Not es BELT GLASS SANDER (Problems) Pelvic Pain: When did the ryan n start:: more than a week She uses oral estradiol and progesterone. She also uses vaginal estradiol cream twice weekly. Location of pain:: not actually pain, j ust pressure, like a bladder spasm Does pain radiate:: No Severity of pain:: mild Quality of pain:: pressure to void, li ke her bladder is full and she's holding it it - it's not actually pain. She denies dysuria Associated signs or symptoms:: none Denies signs and symptoms:: abdominal distention, anorexia, chills, constipation, diarrhea, fever, nausea, vaginal bleeding, vomiting Aggravating factors:: none Remedies tried:: Uristat - it didn't help, antibiotics (macrobid) also didn't help (she stopped them when she got the negative culture report) Any relief from interventions:: no relie f Significant past medical his tory:: prior pelvic surgery Examination Category Sub-Category Detail Notes Category Not es Genitourinary - Female ABDOMEN: soft, non -tender, no mass, no rebound, no guarding, no costovertebral angle tenderness EXTERNAL GENITALS: normal VAGINA: nontender anterior w all, nontender posterior wall, white thick medication present in vaginal vault CERVIX: no cervical movement tenderness UTERUS: normal size, mobile, non tender OVARIES: no masses felt in ad nexa, nontender RECTAL EXAM: no masses, normal to ne, does not reproduce pain BLADDER; nontender ANUS/PERINEUM: visually normal Psychiatry ATTITUDE: cooperative AFFECT: appropriate SPEECH: clear General Exam CONSTITUTIONAL: General Appearan ce:: ore puncher present in room, alert, in no acute distress, normal, well nourished
--- OUTSIDE RECORDS SUMMARY | 2024-12-14 21:44 | XMS_ITS | Encounter Summary ---
Author Organization [employer] Address [address] [address] Care Team Providers Care Statistician Name Role Phone Ira Lee MD Primary Care Provider [phone] Encounter Details Date Type Department Care Team ([facility] Contact Info) Description 11/22/2022 Orders Only [facility] [address] [place] [address] Ira Lee MD [address] [place] [address] Essential hypertension (Primary Dx) Social History Tobacco Use Types Packs/Day Years [...] Orientation Straight 10/27/2022 12 :56 PM EST COVID-19 Exposure Response Date Recorded In the last 10 days, have yo u been in contact with someone who was confirmed or suspected to have Coronavirus/COVID-19? No / Unsure 10/26/2022 7:05 AM EST documented as of this encounter Plan of Treatment Upcoming Encounters Date Type Department Care Team (Late Contact Info) Description 02/11/2025 10:00 AM EDT Office Visit [facility] [address] [place] [address] Ira Lee MD [address] [place] [address] documented as of this encounter Visit Diagnoses Diagnosis Essential hypertension- Primary Unspecified essential hypertension documented in this encounter Additional Health Concerns Assessment Noted Time PHQ-9 Depression Total Score: 1 10/26/19 23 2:05 PM EST documented as of this encounter Care Teams Statistician Relationship Specialty Start Date End Date Ira Lee MD [address] [place] [address] PCP - General Internal Medicine 10/17/18 documented as of this encounter
--- OUTSIDE RECORDS SUMMARY | 2024-12-14 21:44 | XMS_ITS ---
Author Organization [facility] Address [address] [place] [address] Care Team Providers Care Medical Van Driver Name Role Phone SINTIA HARMON, TANISHA Primary Care Provider Iveth Griffin Unavailable [phone] Allergies Allergen (clinical drug ingredient) Drug/Non Drug [...] 5.0 PROTEIN TR GLUCOSE NEG BLOOD MOD REASON FOR VISIT Annual STOCK PARTS FABRICATOR Physical, Annual STOCK PARTS FABRICATOR Physical 60-85+ Medications Medication SIG (Take, Route, Frequency, Duration) Notes Start Date End Date Status Estradiol 0.1 MG/GM _insert 1 GRAM VAGIN ALLY TWICE A WEEK Active Estradiol 0.5 mg TAKE 1 TABLET DAILY Active Estradiol 0.5 MG 1 tablet Orally Once a day for 90 days 06/15/2022 Active Progesterone 100 mg TAKE 1 CAPSULE DAILY AT BEDTIME Active Magnesium Active Adrenal Complex Acti ve Estradiol 0.5 MG 1 tablet Orally Once a day for 90 days 06/21/2024 Active Estradiol 0.1 MG/GM 1 GRAM Vaginal Two t imes a Week for 90 days 06/21/2024 Active Prometrium 100 MG 1 capsule at bedtime Orally Once a day for 90 days 06/21/2024 Active Sertraline HCl 100 MG 1 tablet Orally On ce a day for 30 day(s) Active Vitamin B Complex Orally Ac tive Vitamin D3 1000 IU ORAL daily for -3 Phu-MJ 11/06/2012 Active Prometrium 100 MG 1 capsule at [...] No Points 0 Interpretation Negative Vital Signs Blood pressure systolic 120 mm Hg 06/21/20 24 Blood pressure diastolic 78 mm Hg 024 Height 66 in 06/21/2024 Weight 152 lbs 06/21/2024 BMI 24.53 kg/m2 06/21/2024 Encounters Encounter Location Date Provider Diagnosis Total [address] [place] [address] 06/21/2024 Iveth Orellana Encounter for gynecological examination (general) (routine) without abnormal findings Z01.419 ; Encounter for screening mammogram for malignant neoplasm of breast Z12.31 ; Hormone replacement therapy Z79.890 ; Postmenopausal atrophic vaginitis N95.2 and Family history of malignant neoplasm of breast Z80.3 Assessments Encounter Date Diagnosis (ICD Code) Assessment Notes Treatment Notes Treatment Clinical Notes Section Notes 06/21/2024 Encounter for gynecological examination (general) (routine) without abnormal findings (ICD-10 - Z01.419) NO PAP TEST, DUE IN 2025. 06/21/2024 Encounter for screening mammogram for malignant neoplasm of breast (ICD-10 - Z12.31) REGULAR MAMMOGRAMS AND SBE'S WERE RECOMMENDED. 06/21/2024 Hormone replacement therapy (ICD-10 - Z79.890) DISCUSSED BENEFITS AND RISKS OF HRT. PAT UNDERSTANDS RISKS AND WANTS TO CONTINUE. 06/21/2024 Postmenopausal atrophic vaginitis (ICD-10 - N95.2) CONTINUE ESTRADIOL CREAM. 06/21/2024 Family history of malignant neoplasm of breast (ICD-10 - Z80.3) DISCUSSED PSITIVE BRCA MUTATION IN HER BROTHER AND NIECE. PAT HERSELF IS BRCA NEGATIVE. INCREASED RISK OF BREAST AND UTERINE CA WERE DISCUSSED SPECIALLY WITH HRT BUT SHE WANTS TO CONTINUE HRT. Plan Of Treatment Medication Medication Name Sig Start Date Stop Date Notes Estradiol 0.5 MG 1 tablet Orally Once a day for 90 days Estradiol 0.1 MG/GM 1 GRAM Vaginal Two t imes a Week for 90 days 06/21/2024 Prometrium 100 MG 1 capsule at bedtime Orally Once a day for 90 days 06/21/2024 Treatment Notes Assessment Notes Encounter for gynecological examination (general) (routine) without abnormal findings NO PAP TEST, DUE IN 2025. Encounter for screening mamm ogram for malignant neoplasm of breast REGULAR MAMMOGRAMS AND SBE'S WERE RECOMMENDED. Hormone replacement therapy DISCUSSED BENEFITS AND RISKS OF HRT. PAT UNDERSTANDS RISKS AND WANTS TO CONTINUE. Postmenopausal atrophic vaginitis CONTIN UE ESTRADIOL CREAM. Family history of malignant neoplasm of breast DISCUSSED PSITIVE BRCA MUTATION IN HER BROTHER AND NIECE. PAT HERSELF IS BRCA NEGATIVE. INCREASED RISK OF BREAST AND UTERINE CA WERE DISCUSSED SPECIALLY WITH HRT BUT SHE WANTS TO CONTINUE HRT. Pending Test Test Name Order Date MAMMOGRAM, SCREENING 06/21/2024 MM Digital Mammo Screening 06/21/2024 Next Appt Details Follow Up: 1 Year, Reason: Provider Name:Iveth fink, 06/25/2025 10:20:00 AM, [address] [place] [address], [address], [place], [address], Progress Notes * [facility] LAM[facility]AC[facility]:1960 (64 yo F)Acc No.[id number]:06/21/2024 PROGRESS NOTES Patient:?[facility]IT[facility] Appointment Provider:?Iveth fink M.D. :1960???Age:64 Y???Sex:Female D ate:06/21/2024 Address:[address] [place] [address] Pcp:TANISHA PATRICIO MD Subjective: * Chief Complaints: * ???Annual STOCK PARTS FABRICATOR PhysicalAnnual STOCK PARTS FABRICATOR Physical 60-85+ * HPI: ???New/Follow-up Patient Consult:? VANESA ENTERED MENOPAUSE IN HER 50'S.? SHE IS ON ESTRADIOL 0.5 MG AND PROMETRIUM 100 MG DAILY.? SHE TRIED TO WEAN HERSELF OFF HRT BUT FAILED.? SHE UNDERSTANDS AND ACCEPTS RISKS OF HRT INCLUDING BUT NOT LIMITED TO THROMBOEMBOLIC EVENTS AND INCREASED RISK OF BREAST CA. HER BROTHER AND HIS DAUGHTER ARE BRCA POSITIVE.? THE PAT HERSELF IS BRCA NEGATIVE. SHE UNDERWENT HYSTEROSCOPY, POLYPECTOMY AND D&C IN 2018 WITH BENIGN FINDINGS. HER LAST MAMMOGRAM DONE IN APRIL 2023 SHOWED BREASTS ARE NOT DENSE AND WAS JOSEPH. HER LAST PAP TEST IN 2022 WAS NEGATIVE AND HPV NEGATIVE. SHE HAD A COLONOSCOPY DONE IN 2012 AND COLOGUARD TESTING IN 2023. MODERNA X 5. ???Annual:? Patient presents for annual exam, ages 60-85, postmenopausal. ?General Health Maintenance:?Current breast complaints:?no breast pain, mass, discharge, or skin changes ?Urinary problems:?patient reports no urinary health problems or bowel health problems ?Calcium intake:?takes adequate calcium via diet and supplementation ?Significant STOCK PARTS FABRICATOR problems:?no significant die maker apprentice symptoms or problems * ROS:?general:?no?chest pain.?no?palpitations.?no?headache.?no?cough.?no?shortness of breath.?no?fever.?no?unexplained weight loss.?no?nausea/vomiting.?no?change in bowel movements.?no blood in stool.?no?genitourinary complaints.?no?skin complaints.? * Medical History:? * Slot Floor Attendant History:?/ Para?3/3.?Sexual activity?currently sexually active.?Last Pap Smear:?06/16/23 NIL, NEG HPV, 06/11/20 NIL, NEG HPV, 01/17/17 NIL, neg HR HPV.?Mammogram:?05/04/23 < 50% density, 05/03/22 < 50% density, 04/01/21 < 50% density, 12/11/19 < 50% density, , 12/07/18 < 50% density, 12/01/17 3D < 50% density, 11/15/16 3D< 50% density, 11/12/15 3D < 50% density, 11/11/14.?LMP and menses?N/A SINCE IUD REMOVED.?Colonoscopy?2013.? * OB History:?Total pregnancies?3.?Total living children?3.?(s)?3.? * Surgical History:? x 3 [place] Teeth Extraction * Hospitalization/Major Diagno stic Procedure:?3 [...] MSH2. Pt tested BRCA1/2 neg 12/28/13, accession #[id number]. Results in [facility] EMR - update panel ordered 12/12/19 Brother [...] yes, monogamous relationship. ?Verbal abuse: no. * Medications:?TakingSertralin e HCl 100 MG Tablet 1 tablet Orally [...] Phu-MJVitamin B Complex Tablet Orally Adrenal Complex Taking Sertraline HCl 100 MG Tablet 1 [...] 30 ORAL daily , Notes to Pharmacist: Phu-MJElyse Vitamin B Complex Tablet Orally Taking Adrenal Complex DiscontinuedLexapro 10 MG Tablet 1 tablet Orally Once a day LORazepam 0.5 MG Tablet 1/4 tablet as needed Orally at night Probiotic - Capsule Orally Medication List reviewed and reconciled with the patientDiscontinued Lexapro 10 MG Tablet 1 tablet Orally Once a day Discontinued LORazepam 0.5 MG Tablet 1/4 tablet as needed Orally at night Discontinued Probiotic - Capsule Orally Medication List reviewed and reconciled with the patient * Allergies:?Oxycodone HCl: Al lergySulfa Antibiotics: Skin Rash - Allergyno[Allergies Verified] Objective: * Vitals:?Ht: 66 in, Wt:152lbs , BMI:24.53Index, BP:120/78mm Hg. * Examination: ???General Exam: ?CONSTITUTIONAL:?General Appearance:?alert, in no acute distress, normal, well nourished ?NECK/THYROID:?Inspection/Palpation:?normal ?Thyroid:?normal size and shape ?RESPIRATORY:?Auscultation: clear to auscultation bilaterally, Respiratory Effort: normal.?CARDIOVASCULAR:?Auscultation: regular rate and rhythm.?BREAST, Right:?Inspection/Palpation:?no discharge, no masses present, no nipple retraction, no skin changes, no skin dimpling, no tenderness, no lymphadenopathy, no axillary mass, no axillary tenderness ?BREAST, Left:?Inspection/Palpation:?no discharge, no masses present, no nipple retraction, no skin changes, no skin dimpling, no tenderness, no lymphadenopathy, no axillary mass, no axillary tenderness ?GASTROINTESTINAL:?Abdomen:?no masses, nontender, nondistended ?Liver and Spleen:?normal ?Hernias:?no hernias present, no inguinal adenopathy ?MUSCULOSKELETAL:?Inspection/Palpation:?no clubbing, cyanosis, or edema ?SKIN:?Skin:?normal ?NEURO/PSYCH:?Orientation:?time , place, person ?Mood/Affect:?normal?Genitourinary: ?EXTERNAL GENITALIA:?External Genitalia:?normal, no lesions ?VAGINA:?Vagina:?normal appearance, no abnormal discharge, no lesions ?BLADDER:?Bladder:?no mass, nontender ?URETHRA:?Urethra:?no erythema or lesions present ?CERVIX:?Cervix:?no lesions, nontender ?UTERUS:?Uterus:?nontender, normal contour, normal mobility, normal size ?ADNEXA:?Adnexa:?no masses, no tenderness ?ANUS AND PERINEUM:?Anus/Perineum:?visually normal??? Assessment: * Assessment: 1.?Encounter for gynecologic al examination (general) (routine) without abnormal findings - Z01.419???2.?Encounter for screening mammogram for malignant neoplasm of breast - Z12.31???3.?Hormone replacement therapy - Z79.890???4.?Postmenopausal atrophic vaginitis - N95.2???5.?Family history of malignant neoplasm of breast - Z80.3??? Plan: * Treatment: ? Value Reference Range ?PH 5.0 * ?PROTEIN TR * ?GLUCOSE NEG * ?BLOOD MOD Notes: NO PAP TEST, DUE IN 2025.??2.?Encounter for screening mammogram for malignant neoplasm of breast?Imaging: MM Digital Mammo Screening Notes: REGULAR MAMMOGRAMS AND SBE'S WERE RECOMMENDED.??3.?Hormone replacement therapy? Start Estradiol Tablet, 0.5 MG, 1 tablet, Orally, Once a day, 90 days, 90 Tablet, Refills 3;?Start Prometrium Capsule, 100 MG, 1 capsule at bedtime, Orally, Once a day, 90 days, 90 Capsule, Refills 3.?? Notes: DISCUSSED BENEFITS AND RISKS OF HRT. VANESA UNDERSTANDS RISKS AND WANTS TO CONTINUE.??4.?Postmenopausal atrophic vaginitis? Start Estradiol Cream, 0.1 MG/GM, 1 GRAM, Vaginal, Two times a Week, 90 days, 42.5 Gram, Refills 3. ? Notes: CONTINUE ESTRADIOL CREAM.??5.?Family history of malignant neoplasm of breast? Notes: DISCUSSED PSITIVE BRCA MUTATION IN HER BROTHER AND NIECE. PAT HERSELF IS BRCA NEGATIVE. INCREASED RISK OF BREAST AND UTERINE CA WERE DISCUSSED SPECIALLY WITH HRT BUT SHE WANTS TO CONTINUEHRT.?? * Imaging:? * ?Imaging: MAMMOGRAM, SCR EENING * Procedure Codes:? * Preventive Medicine:? ??YOUR PREVENTIVE WELLNESS PLAN:?Osteoporosis prevention?Calcium, D, strength training.?Breast Cancer Screening (Mammogram):?annually.?Cervical Cancer Screening (Pap Smear):?q 3 years with HPV screen.?Colorectal Cancer Screening:?q 10 years.? * Follow Up:?1 Year * Images: Billing Information: * Visit Code:? 73293 Preventive Care Est Pt. Age 65 and over. * Procedure Codes:? * Sign off status: Completed true * Appointment Provider:?Iveth Orellana M.D. Date:?06/21/2024 Generated for Meg grant/Faxing/eTransmitting on:?12/14/2024 09:43 PM EST History and Physical Notes * HPI (History of Present Illness) Category Sub-Category Detail Notes Category Not es New/Follow-up Patient Consult PAT ENTERED MENOPAUSE IN HER 50'S. SHE IS ON ESTRADIOL 0.5 MG AND PROMETRIUM 100 MG DAILY. SHE TRIED TO WEAN HERSELF OFF HRT BUT FAILED. SHE UNDERSTANDS AND ACCEPTS RISKS OF HRT INCLUDING BUT NOT LIMITED TO THROMBOEMBOLIC EVENTS AND INCREASED RISK OF BREAST CA. HER BROTHER AND HIS DAUGHTER ARE BRCA POSITIVE. THE PAT HERSELF IS BRCA NEGATIVE. SHE UNDERWENT HYSTEROSCOPY, POLYPECTOMY AND D&C IN 2018 WITH BENIGN FINDINGS. HER LAST MAMMOGRAM DONE IN APRIL 2023 SHOWED BREASTS ARE NOT DENSE AND WAS JOSEPH. HER LAST PAP TEST IN 2022 WAS NEGATIVE AND HPV NEGATIVE. SHE HAD A COLONOSCOPY DONE IN 2012 AND COLOGUARD TESTING IN 2023. MODERNA X 5. Annual General Health Maintenance: Current breast complaints:: no breast pain, mass, discharge, or skin changes Urinary problems:: patient r eports no urinary health problems or bowel health problems Calcium intake:: takes adequ ate calcium via diet and supplementation Significant STOCK PARTS FABRICATOR problems:: n o significant die maker apprentice symptoms or problems Examination Category Sub-Category Detail Notes Category Not es General Exam CONSTITUTIONAL: General Appearan ce:: alert, in no acute distress, normal, well nourished NECK/THYROID: Thyroid:: normal size and shape Inspection/Palpation:: normal RESPIRATORY: Auscultation: clear to auscultation bilaterally, Respiratory Effort: normal CARDIOVASCULAR: Auscultation: regula r rate and rhythm GASTROINTESTINAL: Hernias:: no hernias present, no inguinal adenopathy Liver and Spleen:: normal Abdomen:: no masses, nontender, nondiste nded MUSCULOSKELETAL: Inspection/Palpation:: no clubb ing, cyanosis, or edema SKIN: Skin:: normal NEURO/PSYCH: Mood/Affect:: normal Orientation:: time , place, person BREAST, Right: Inspection/Palpation :: no discharge, no masses present, no nipple retraction, no skin changes, no skin dimpling, no tenderness, no lymphadenopathy, no axillary mass, no axillary tenderness BREAST, Left: Inspection/Palpation :: no discharge, no masses present, no nipple retraction, no skin changes, no skin dimpling, no tenderness, no lymphadenopathy, no axillary mass, no axillary tenderness Genitourinary EXTERNAL GENITALIA: External Genitalia:: nor mal, no lesions VAGINA: Vagina:: normal appearance, no a bnormal discharge, no lesions BLADDER: Bladder:: no mass, nontender URETHRA: Urethra:: no erythema or lesions present CERVIX: Cervix:: no lesions, nontender UTERUS: Uterus:: nontender, normal conto ur, normal mobility, normal size ADNEXA: Adnexa:: no masses, no tendernes s ANUS AND PERINEUM: Anus/Perineum:: visually norm al
== END ==
LOC: HO.SL 20:30
PROVIDERS: PCP Internal Medicine; Visit Provider Internal Medicine
DX: Z13.89 Encounter for screening for other disorder (principal)